=== PATIENT | female | born 1980 | race Caucasian/White ===

== ENCOUNTER → 2017-04-08 | Outpatient (CLI) | payer OTHER ==
[~2017-04-08] MED LIST: /HYDR10T PO; /PREG100CA PO; /PREG50CA PO; ALEV220C2 PO; ALLE60TA69 PO; AMBI5TAB PO; AMBIEN PO; BACL10TA2 PO; BCP; BELS1TAB PO; CIPR500T19 OR; CYCL10TA3 PO; DULO30CA PO; EXCETAB49 PO; GABA-279 PO; GABA-282 PO; IMIT50TA PO; IRON65TA PO; LEVO500T PO; LIDO5OI EXT; MAXA5TAB10 PO; MOTR200T44 PO; NAPR500T PO; NEUR100C PO; NEUR600T PO; NORA0.35 PO; NORC10TA21 PO; NORCOBULK PO; OCEL3TAB PO; OXYC-517 PO; OXYC1TAB16 PO; PERC5TAB8 PO; PROZ20CA11 PO; SAFYTAB PO; TIZA4CAP3 PO; TOPA200T7 PO; TOPA25TA PO; TRAM37.5 PO; TRAM50TA2 PO; VERA40TA PO; WELL150T PO; XARE15TA PO; YASM3TAB2 PO; [UNRECOGNIZED DRUG - CODE] PO; [UNRECOGNIZED DRUG - REMARK]
--- NOTE | 2017-04-08 17:27 | REP ---
Clinical: Contusion . Technique: AP, lateral, bilateral oblique views right ankle . Findings: No acute fracture or dislocation. Skeletal structures and joint spaces are intact and normal. Ankle mortise appears stable. No subcutaneous emphysema or radiodense foreign body. Impression: Normal right ankle radiograph series. Signed by Aron Mcguire MD 04/08/2017 05:18 P
--- NOTE | 2017-04-08 17:29 | REP ---
Clinical: Trauma. Contusion. Technique: AP, lateral, bilateral oblique views right foot . Findings: The osseous structures and joint spaces are intact and normal. There is no evidence for acute fracture or dislocation. Surrounding soft tissues are unremarkable. No subcutaneous emphysema or radiodense foreign body. Impression: No acute fracture or dislocation. Signed by Aron Mcguire MD 04/08/2017 05:20 P
== END ==
LOC: M WUC 17:01
PROVIDERS: ATTEND Physician Assistant
DX: S90.31XA Contusion of right foot, initial encounter (principal); S90.01XA Contusion of right ankle, initial encounter; X58.XXXA Exposure to other specified factors, initial encounter; Y92.9 Unspecified place or not applicable; Y93.9 Activity, unspecified; Y99.9 Unspecified external cause status

== ENCOUNTER → 2017-04-18 | Outpatient (REF) | payer OTHER ==
[2017-04-18 18:22] LABS: WHITE BLOOD COUNT 7.1 K/mm3 (4.0-10.0)
[2017-04-18 18:23] LABS: MEAN CORPUSCULAR HEMOGLOBIN 31.5 pg (27.0-33.0); MEAN CORPUSCULAR HGB CONC 31.9 g/dl (32.0-36.5); MEAN CORPUSCULAR VOLUME 98.7 fl (80.0-96.0); RED CELL DISTRIBUTION WIDTH 13.2 % (11.5-14.5)
[2017-04-18 18:51] LABS: ALBUMIN 3.6 GM/DL (3.2-5.2); ALBUMIN/GLOBULIN RATIO 1.24 (1.00-1.93); ALKALINE PHOSPHATASE 117 U/L (45-117); ALT/SGPT 34 U/L (12-78); ANION GAP 6 MEQ/L (8-16); AST/SGOT 15 U/L (15-37); BILIRUBIN,TOTAL 0.2 MG/DL (0.2-1.0); BLOOD UREA NITROGEN 18 MG/DL (7-18); CALCIUM LEVEL 9.2 MG/DL (8.5-10.1); CARBON DIOXIDE LEVEL 25 MEQ/L (21-32); CHLORIDE LEVEL 113 MEQ/L (98-107); CREATININE FOR GFR 0.74 MG/DL (0.55-1.02); GLOMERULAR FILTRATION RATE > 60.0 (>60); GLUCOSE, FASTING 107 MG/DL (70-105); POTASSIUM SERUM 4.1 MEQ/L (3.5-5.1); SODIUM LEVEL 144 MEQ/L (136-145); TOTAL PROTEIN 6.5 GM/DL (6.4-8.2)
[2017-04-18 18:58] LABS: EOSINOPHILS 1 % (0-5)
== END ==
LOC: M SFHCPLAZ 15:18
PROVIDERS: ATTEND Family Medicine
DX: R63.4 Abnormal weight loss (principal)

== ENCOUNTER → 2017-06-04 | Outpatient (CLI) | payer OTHER ==
--- NOTE | 2017-06-14 23:47 | ECWPNPC ---
PATIENT NAME: HECTOR MURPHY : 1980 GENDER: FEMALE VISIT DATE: 06/04/2017 DISCHARGE DATE: 06/04/17 1530 VISIT LOCKED DATE TIME: PHYSICIAN: FAWN HENSLEY RESOURCE: FAWN HENSLEY REASON FOR APPOINTMENT 1. BACK HISTORY OF PRESENT ILLNESS HISTORY OF PRESENT ILLNESS: PAIN THE PATIENT DESCRIBES THE PAIN... FALL RISK SCREENING: SCREENING :NO FALLS IN THE PAST YEAR TODAY'S VISIT: NOTES: LAST VISIT 05/11/17. DESCRIBES PAIN INTERMITTANT AND CENTERED OVER LOW BACK LEFT SIDE. HURTS TO STRETCH. NO INJURIES. IS WORKING FULLTIME AND LIFTS A GREAT DEAL AND IS ON FEET . RATES PAIN TODAY 4/10. DESCRIBES PAIN INTERMITTANT AND SHARP AND LOCATED AT RIGHT SIDE LOW BACK. DENIES ANY RADIATION OF PAIN TO THE SACRUM . CURRENT MEDICATIONS TAKING CYMBALTA 60 MG CAPSULE DELAYED RELEASE PARTICLES 1 CAPSULE ORALLY ONCE A DAY TAKING TOPAMAX 200 MG TABLET 1 TABLET ORALLY AT BEDTIME TAKING GABAPENTIN 300 MG CAPSULE 1 CAPSULE ORALLY ONE TAB IN AM, ONE TAB IN THE AFTERNOO, TWO TABS AT BED TIME, NOTES: 04/04/16 AT 0800 TAKING DIPHENOXYLATE-ATROPINE 0.025-2.5 MG TABLET 1-2 TABLETS ORALLY FOUR TIMES A DAY NEEDED MDD:6 TAKING ZOLPIDEM TARTRATE 5 MG TABLET 1 TABLET AT BEDTIME ORALLY ONCE A DAY/MDD #1 TAKING TRAMADOL HCL 50 MG TABLET 2 TABS ORALLY EVERY 6 HRS PRN PAIN MDD=6 TAKING SENOKOT S 8.6-50 MG TABLET 2 TABLETS IN THE EVENING NEEDED ORALLY BEFORE BEDTIME TAKING MIRALAX SUSPENSION 17 GRAMS ORALLY AT HOUR OF SLEEP TAKING CHANTIX STARTING MONTH ESTRELLITA 0.5 MG X 11 & 1 MG X 42 TABLET DIRECTED; PATIENT TO REQUEST REFILL IF NECESSARY AFTER COMPLETING STARTING PACK ORALLY DIRECTED TAKING FLUOXETINE HCL 40 MG CAPSULE TAKE ONE CAPSULE BY MOUTH DAILY ORALLY ONCE DAILY TAKING PROMETHAZINE HCL 12.5 MG TABLET 1 TABLET NEEDED FOR NAUSEA ORALLY EVERY 6 HRS NOT-TAKING BISACODYL 10 MG SUPPOSITORY 1 SUPPOSITORY NEEDED RECTAL ONCE A DAY NOT-TAKING DOXYCYCLINE HYCLATE 100 MG CAPSULE 1 CAPSULE ORALLY EVERY 12 HRS NOT-TAKING FLUCONAZOLE 150 MG TABLET 1 TABLET ORALLY ONCE NOT-TAKING MUCINEX 600 MG TABLET EXTENDED RELEASE 12 HOUR 1 TABLET NEEDED ORALLY EVERY 12 HRS NOT-TAKING TESSALON PERLES 100 MG CAPSULE 1 CAPSULE NEEDED ORALLY THREE TIMES A DAY NOT-TAKING LEVAQUIN 750 MG TABLET 1 TABLET ORALLY ONCE A DAY MEDICATION LIST REVIEWED AND RECONCILED WITH THE PATIENT PAST MEDICAL HISTORY ALLERGIES ENDOMETRIOSIS MIGRAINE HEADACHE STOMACH ULCER/2009 KIDNEY STONES-2011 DEPRESSION PNEUMONIA 06/18 KNEE RIGHT ARTHRITIS AND PATELLA PROBLEM FX RIGHT ELBOW RIGHT LEG/ANKLE -WORK INJURY 2011 3 AND 4TH LUMBAR DISC RUPTURED-2012 DVT LEFT ARM ALLERGIES PENICILLIN (FOR ALLERGIES USE ONLY): ANAPHYLAXIS: ALLERGY KEFLEX: ANAPHYLAXIS: ALLERGY LATEX: CONTACT DERMIT.: ALLERGY PREDNISONE: RASH: ALLERGY SHELLFISH: SWELLING: ALLERGY CODEINE PHOSPHATE (FOR ALLERGIES USE ONLY): VOMITING- BLEEDING: ALLERGY SURGICAL HISTORY LAPAROSCOPIC,VAPORIZATION OF AUBREY,ENDOMETRIOSIS, REMOVAL OF IUD 2003 CYST REMOVAL/RIGHT OVARY WITH UTERINE LIFT FOR PELVIC CONGESTION SYNDROME 2004 ENDOMETRIAL POLYPECTOMY 2006 ANKLE SURGERY/RIGHT 05/16,03/19 RIGHT INGUINAL HERNIA REPAIR 2003 RIGHT ELBOW SURGERY 06/2014 PENDING LEFT ELBOW AND CARPAL TUNNEL SURGERY 09/2014 COLONSCOPY/ENDOSCOPY- DR. ANDRES 07/02/16 CHOLECYSTECTOMY 08/07/2016 HOSPITALIZATION/MAJOR DIAGNOSTIC PROCEDURE KIDNEY PROBLEMS 2011 REVIEW OF SYSTEMS REVIEWED BY: PROVIDER: FAWN GRIER . CONSTITUTIONAL: ANY CHANGE IN YOUR MEDICAL CONDITION? NO . CHILLS NO . FEVER NO . INFECTION: DO YOU HAVE NEW INFECTIONS? NO . DO YOU HAVE HISTORY OF MRSA? NO . MUSCULOSKELETAL: ANY NEW PATTERNS OF PAIN OR NUMBNESS? NO . GASTROENTEROLOGY: ANY NEW CHANGE IN BOWEL CONTROL? YES, CONSTIPATION . GENITOURINARY: ANY NEW CHANGE IN BLADDER CONTROL? NO . IS THERE A CHANCE YOU COULD BE ? NO . HEMATOLOGY/LYMPH: DO YOU TAKE ANY BLOOD THINNERS? (FOR EXAMPLE- COUMADIN, PLAVIX, AGGRENOX, PLATEL, PRADAXA, OR XARELTO) NO . WHEN WAS YOUR LAST DOSE? DATE: TIME: . NEUROLOGY: HAVE YOU FALLEN IN THE PAST 6 MONTHS? NO . ANY NEW EXTREMITY NUMBNESS OR WEAKNESS? NO . CARDIOLOGY: DO YOU HAVE A PACEMAKER OR DEFIBRILLATOR? NO . RESPIRATORY: HAVE YOU BEEN SICK IN THE PAST WEEK? NO . FEVER NO . FLU LIKE SYMPTOMS? NO . GENERAL HAS BEEN SICK FOR 4 MONTHS WITH HARSH COUGH WITH GREEN PRODUCTION. HAS BEEN ON MULTIPLE ABX BUT STILL WITH DIFFICULT. TO RESEE DR SERVIN IN THREE WEEKS. . COUGH NO . INTEGUMENTARY: DO YOU HAVE ANY RASHES OR OPEN SORES? NO . ALLERGIC/IMMUNO: ARE YOU ALLERGIC TO SHELLFISH OR IV DYE? YES . ANY NEW ALLERGIES? NO . PSYCHIATRIC: DO YOU HAVE THOUGHTS OF HURTING YOURSELF OR SOMEONE ELSE? NO . ARE YOU ABUSED, NEGLECTED, OR IN AN UNSAFE ENVIRONMENT? NO . ENDOCRINOLOGY: ARE YOU DIABETIC? NO . OTHER: DO YOU NEED ANY PRESCRIPTIONS? NO . IF YES, PLEASE LIST: ____ . ANY NEW PROBLEMS WITH YOUR MEDICATIONS? NO . WHEN DID YOU LAST EAT? ____ . WHEN DID YOU LAST DRINK? ____ . WHAT DID YOU LAST DRINK? ____ . NAME OF PERSON DRIVING YOU HOME? ____ . DO YOU HAVE ANY OTHER QUESTIONS OR CONCERNS NO . VITAL SIGNS WT 101 LBS, HT 62 IN, BMI 18.47 INDEX, BP 125/87 MM HG, HR 69 /MIN, RR 16 /MIN, TEMP 97.9 F, OXYGEN SAT % 99, REVIEWED BY: EM. EXAMINATION GENERAL EXAMINATION: PSYCHALERT , ORIENTED X 3 , APPROPRIATE MOOD AND AFFECT , TALKATIVE. LUNGS: CLEAR TO AUSCULTATION BILATERALLY. HEART:HEART RATE REGULAR. MUSCULOSKELETAL:RIGHT GREATER THAN LEFT SACRAL DISCOMFORT., TRIGGER POINTS:, ELICITED WITH PALPATION OVER LUMBAR PARAVERTEBRAL MUSCLES AND INTO THE SACRUM. RESTRICTION OF ROM IN THIS AREA. RISES TO UPRIGHT POSITION WITHOUT DIFFICULTY. GAIT NONANTALGIC. 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 STRETCH ABLE.BOTOX FOR THE FUTURE. PROCEDURE CODES FA211 ESTABILISHED PATIENT [facility] CHARGE DISPOSITION & COMMUNICATION FOLLOW UP 7 WEEKS (REASON: BACK PAIN) ELECTRONICALLY SIGNED BY ELOISE ENGLISH ON 06/14/2017 AT 04:57 PM EDT DISCLAIMER : THIS IS A VISIT SUMMARY EXTRACTED FROM THE [employer] CHART. IT IS NOT A COPY OF THE [employer] PROGRESS NOTE. ANALILIA
== END ==
LOC: M PAIN 14:15
PROVIDERS: ATTEND Nurse Practitioner Family
DX: M46.96 Unspecified inflammatory spondylopathy, lumbar region (principal); G90.529 Complex regional pain syndrome I of unspecified lower limb; M79.1 Myalgia; F41.9 Anxiety disorder, unspecified; F32.9 Major depressive disorder, single episode, unspecified; K59.00 Constipation, unspecified; E46 Unspecified protein-calorie malnutrition; Z79.891 Long term (current) use of opiate analgesic; Z79.899 Other long term (current) drug therapy; Z88.0 Allergy status to penicillin; Z88.5 Allergy status to narcotic agent; Z88.1 Allergy status to other antibiotic agents; Z91.013 Allergy to seafood; Z91.040 Latex allergy status

== ENCOUNTER → 2017-08-19 | Outpatient (CLI) | payer OTHER | LOC: M PAIN 15:00 | PROVIDERS: ATTEND Nurse Practitioner Family | DX: Z53.29 Procedure and treatment not carried out because of patient's decision for other reasons (principal) ==

== ENCOUNTER → 2017-09-19 | Outpatient (CLI) | payer OTHER | LOC: M PAIN 13:30 | DX: M46.96 Unspecified inflammatory spondylopathy, lumbar region (principal); Z79.891 Long term (current) use of opiate analgesic; Z79.899 Other long term (current) drug therapy; F17.210 Nicotine dependence, cigarettes, uncomplicated; R51 Headache; Z88.0 Allergy status to penicillin; Z88.1 Allergy status to other antibiotic agents; Z88.5 Allergy status to narcotic agent; Z88.8 Allergy status to other drugs, medicaments and biological substances; Z91.040 Latex allergy status; Z91.013 Allergy to seafood | CPT/HCPCS: G0463 ==

== ENCOUNTER 2018-11-06 01:45 | Emergency (ER) | payer OTHER ==
[~2018-11-06] VITALS: Ht 157.5 cm; Wt 44.5 kg
[2018-11-06 01:45] VITALS: BP 112/72
[~2018-11-06 01:45] MED LIST changes: +GABA-1171 PO; -GABA-279 PO; -GABA-282 PO; +GABA-843 PO; +OXYC10TA3 PO; -OXYC1TAB16 PO; +TIZA4CAP PO; -TIZA4CAP3 PO
[2018-11-06] MEDS ORDERED: IBUP-1022 PO (01:55)
[2018-11-06] MEDS ORDERED: traMADol 50 MG TAB PO ONE (03:00)
--- NOTE | 2018-11-06 07:39 | REP ---
Clinical: Pain. Technique: AP, lateral, bilateral oblique views of the right ankle. Findings: Mild lateral swelling suggests inversion injury. Cortical irregularity at the fibular head may reflect old injury. No acute fracture dislocation. Ankle mortise intact. No subcutaneous emphysema or radiodense foreign body. Impression: 1. Mild lateral swelling. 2. Possible old healed lateral malleolus injury. 3. No acute fracture or dislocation. Electronically Signed by Aron Mcguire MD 11/06/2018 07:31 A
== END 2018-11-06 03:03 | disposition home or self-care (01) ==
LOC: M ED 01:45
DX: G89.4 Chronic pain syndrome (principal); G43.909 Migraine, unspecified, not intractable, without status migrainosus; Z88.0 Allergy status to penicillin; Z88.1 Allergy status to other antibiotic agents; Z88.5 Allergy status to narcotic agent; Z88.8 Allergy status to other drugs, medicaments and biological substances; Z91.013 Allergy to seafood; Z91.040 Latex allergy status; Z91.041 Radiographic dye allergy status; F17.210 Nicotine dependence, cigarettes, uncomplicated

== ENCOUNTER 2018-12-02 22:18 | Emergency (ER) | payer MEDICAID, OTHER, SELFPAY ==
[~2018-12-02] VITALS: Ht 157.5 cm; Wt 44.5 kg
[~2018-12-02 22:18] MED LIST changes: -/PREG100CA PO; -/PREG50CA PO; -DULO30CA PO; +DULO30CA9 PO; +IBUP-1022 PO; +LIDO1OIN2 EXT; -LIDO5OI EXT; +LYRI100C PO; +LYRI50CA PO; -NORC10TA21 PO; +NORC1TAB5 PO
[2018-12-03] MEDS ORDERED: LIDOCAINE 4% CREAM 5GM (LMX4) TOP STA
[2018-12-03] MEDS ORDERED: TRAM50TA2 PO (01:09)
[2018-12-03] MEDS ORDERED: LIDO5CRE6 TOP (01:09)
[2018-12-03] MEDS ORDERED: traMADol 50 MG TAB PO ONE ×2 (01:15)
[2018-12-03 01:17] VITALS: BP 126/74
--- NOTE | 2018-12-03 06:47 | REP ---
Clinical: Bilateral wrist pain. Technique: AP, lateral, bilateral oblique views of the right and left wrist. Findings: Osseous structures, joint spaces, and surrounding soft tissues appear normal for age. No acute fracture dislocation. No overt osteoarthritic degenerative changes are appreciated. No subcutaneous emphysema or radiodense foreign body. Impression: Age-appropriate bilateral wrist radiograph series. Electronically Signed by Aron Mcguire MD 12/03/2018 06:38 A
== END 2018-12-03 01:24 | disposition home or self-care (01) ==
LOC: M ED 22:18
DX: M65.4 Radial styloid tenosynovitis [de Quervain] (principal); F17.200 Nicotine dependence, unspecified, uncomplicated; Z91.041 Radiographic dye allergy status; Z88.1 Allergy status to other antibiotic agents; Z88.5 Allergy status to narcotic agent; Z91.040 Latex allergy status; Z91.048 Other nonmedicinal substance allergy status; Z91.013 Allergy to seafood; Z88.0 Allergy status to penicillin

== ENCOUNTER 2020-04-27 11:56 | Emergency (ER) | payer MEDICAID, OTHER, SELFPAY ==
[~2020-04-27] VITALS: Ht 157.5 cm; Wt 43.2 kg
[~2020-04-27 11:56] MED LIST changes: +LIDO5CRE6 TOP
[2020-04-27] MEDS ORDERED: FLUO20CA22 PO (12:13)
[2020-04-27] MEDS ORDERED: PANTOPRAZOLE 40MG VIAL (C9113 PER 1) IV ONE (12:30)
[2020-04-27] MEDS ORDERED: ONDANSETRON 4MG/2ML VIAL IV ONE (12:30)
[2020-04-27] MEDS ORDERED: NS 1,000 ML IV ONE (12:30)
[2020-04-27] MEDS ORDERED: GI COCKTAIL 50ML BTL(HYOSCYAMINE/MAALOX/LIDOCAINE VISCOUS)(1:3:1) PO ONE (12:30)
[2020-04-27 12:48] LABS: BASO % 0.3 % (0.0-1.0); HEMATOCRIT 46.2 % (36.0-47.0); HEMOGLOBIN 15.8 g/dl (12.0-15.5); LYMPH % 7.5 % (24.0-44.0); MEAN CORPUSCULAR HEMOGLOBIN 31.5 pg (27.0-33.0); MEAN CORPUSCULAR HGB CONC 34.2 g/dl (32.0-36.5); MEAN CORPUSCULAR VOLUME 92.2 fl (80.0-96.0); MONO # 0.4 10^3/uL (0.0-0.8); MONO % 3.2 % (0.0-5.0); NEUTROPHILS # 12.2 10^3/uL (1.5-8.5); NEUTROPHILS % 88.3 % (36.0-66.0); PLATELET COUNT, AUTOMATED 363 10^3/uL (150-450); RED BLOOD COUNT 5.01 10^6/uL (4.00-5.40); WHITE BLOOD COUNT 13.8 10^3/uL (4.0-10.0)
[2020-04-27 13:27] LABS: ALBUMIN 4.4 GM/DL (3.2-5.2); ALT/SGPT 19 U/L (12-78); AMYLASE 97 U/L (25-115); BILIRUBIN,DIRECT < 0.1 MG/DL (0.0-0.2); BILIRUBIN,TOTAL 0.8 MG/DL (0.2-1.0); BLOOD UREA NITROGEN 9 MG/DL (7-18); CALCIUM LEVEL 9.9 MG/DL (8.5-10.1); CARBON DIOXIDE LEVEL 22 MEQ/L (21-32); CHLORIDE LEVEL 104 MEQ/L (98-107); CREATININE FOR GFR 0.68 MG/DL (0.55-1.30); GLOMERULAR FILTRATION RATE > 60.0 (>58); GLUCOSE, FASTING 163 MG/DL (70-100); LIPASE 56 U/L (73-393); POTASSIUM SERUM 5.5 MEQ/L (3.5-5.1); SODIUM LEVEL 133 MEQ/L (136-145); TOTAL PROTEIN 7.9 GM/DL (6.4-8.2)
[2020-04-27 15:00] VITALS: BP 139/80
[2020-04-27] MEDS ORDERED: PEPC1TAB5 PO (15:02)
[2020-04-27] MEDS ORDERED: ZOFR4TAB16 PO (15:02)
== END 2020-04-27 15:28 | disposition home or self-care (01) ==
LOC: M ED 11:56 → EDBD 11:56 → M ED 15:28
DX: R11.2 Nausea with vomiting, unspecified (principal); R10.9 Unspecified abdominal pain; Z79.899 Other long term (current) drug therapy; Z88.0 Allergy status to penicillin; Z88.1 Allergy status to other antibiotic agents; Z88.5 Allergy status to narcotic agent; Z88.8 Allergy status to other drugs, medicaments and biological substances; Z91.041 Radiographic dye allergy status; F17.210 Nicotine dependence, cigarettes, uncomplicated
CPT/HCPCS: 80048; 80076; 81001; 82150; 83690; 85025; 96361; 96374; 96375; 99284; C9113; J2405

== ENCOUNTER → 2020-11-08 | Outpatient (REF) | payer OTHER, SELFPAY ==
[~2020-11-08] MED LIST changes: +FLUO20CA22 PO; +GABA-282 PO; -GABA-843 PO; +PEPC1TAB5 PO; +ZOFR4TAB16 PO
[2020-11-08 16:04] LABS: CHLAMYDIA DNA AMPLIFICATION NEGATIVE (NEGATIVE); GC DNA AMPLIFICATION NEGATIVE (NEGATIVE)
== END ==
LOC: M SFHCWAGY 13:35
PROVIDERS: ATTEND Nurse Practitioner Women's Health
DX: Z11.3 Encounter for screening for infections with a predominantly sexual mode of transmission (principal)

== ENCOUNTER → 2020-11-08 | Outpatient (REF) | payer OTHER, SELFPAY | LOC: M SFHCWAGY 13:50 | PROVIDERS: ATTEND Nurse Practitioner Women's Health | DX: Z12.4 Encounter for screening for malignant neoplasm of cervix (principal) | CPT/HCPCS: 87624; G0123 ==

== ENCOUNTER → 2021-01-02 | Outpatient (CLI) | payer MEDICAID | LOC: M LABSMTC 13:39 | PROVIDERS: ATTEND Anesthesiology | DX: Z01.812 Encounter for preprocedural laboratory examination (principal); Z20.822 Contact with and (suspected) exposure to COVID-19 ==

== ENCOUNTER 2021-01-06 09:27 | Day surgery (SDC) | payer MEDICAID, SELFPAY ==
[~2021-01-06] VITALS: Ht 157.5 cm; Wt 54.4 kg
[~2021-01-06 09:27] MED LIST changes: +ACETAMINOPHEN 1000MG 100ML IV BTL (OFIRMEV) (J0131 PER 10MG) As Ordered ONE; +LIDOCAINE 2% 100MG/5ML SDV (FOR ANES.) As Ordered ONE; +LR 1,000 ML IV ONE; +MIDAZOLAM INJ 2MG/2ML VIAL (J2250 PER 1MG) As Ordered ONE; +ONDANSETRON 4MG/2ML VIAL As Ordered ONE; +dexameTHASONE 4 MG/ML 1ML VIAL (J1100 PER 1MG) As Ordered ONE; +fentaNYL 100 MCG/2 ML INJECTION (J3010) As Ordered ONE; +propofoL 200 MG/20 ML VIAL As Ordered ONE
[2021-01-06] MEDS ORDERED: BUPIVACAINE HCL 0.25% 10ML VIAL As Ordered ONE (09:52)
[2021-01-06] MEDS ORDERED: SCOPOLAMINE 1MG TRANSDERMAL PATCH As Ordered ONE (10:10)
[2021-01-06] MEDS ORDERED: SCOPOLAMINE 1MG TRANSDERMAL PATCH TOP ONE (10:15)
[2021-01-06 10:26] LABS: HEMATOCRIT 43.4 % (36.0-47.0); HEMOGLOBIN 14.8 g/dl (12.0-15.5); MEAN CORPUSCULAR HEMOGLOBIN 31.6 pg (27.0-33.0); MEAN CORPUSCULAR HGB CONC 34.1 g/dl (32.0-36.5); MEAN CORPUSCULAR VOLUME 92.7 fl (80.0-96.0); PLATELET COUNT, AUTOMATED 331 10^3/uL (150-450); RED BLOOD COUNT 4.68 10^6/uL (4.00-5.40); WHITE BLOOD COUNT 7.3 10^3/uL (4.0-10.0)
[2021-01-06] MEDS ORDERED: ROCURONIUM BROMIDE 50 MG/5 ML VIAL As Ordered ONE (10:26)
[2021-01-06] MEDS ORDERED: METOCLOPRAMIDE INJ 10MG/2ML VIAL (J2765 PER 1) As Ordered ONE (10:27)
[2021-01-06] MEDS ORDERED: SUGAMMADEX SODIUM 500 MG/5 ML VIAL (BRIDION) As Ordered ONE ×2 (10:30→10:34)
[2021-01-06] MEDS ORDERED: KETOROLAC 60MG 2ML VIAL As Ordered ONE (10:37)
--- NOTE | 2021-01-06 11:38 | ROOPDOC ---
[facility] Report Of Operation Report of Operation DATE OF PROCEDURE: 01/06/21 PREPROCEDURE DIAGNOSES: Undesired fertility POSTPROCEDURE DIAGNOSES: same. PROCEDURE: Laparoscopic bilateral salpingectomy, right ovarian cystectomy, removal of intrauterine device, hysteroscopy, D&C, NovaSure endometrial ablation. SURGEON: Ashley Cerda MD ANESTHESIA: Gen. endotracheal anesthesia. ESTIMATED BLOOD LOSS: Approximately 30 mL. COMPLICATIONS: None. FINDINGS: 4-5 cm hemorrhagic cyst of the right ovary. Normal left ovary. Normal fallopian tubes. Normal uterus. Normal upper abdomen. Normal endometrial cavity. PROCEDURE NOTE: Patient was taken to the operating room where general endotracheal anesthesia induced. She was prepped draped sterile fashion in the dorsal lithotomy position. A sponge stick was placed in the vagina and uses manipulator. The bladder was emptied with a catheter. A periumbilical incision was made with the scalpel. A Veress needle was placed through this incision while tenting up on the skin of the abdomen.. Intra-abdominal location of the Veress needle was assessed with use of a saline filled syringe. A pneumoperitoneum was created. The Veress needle was removed. A 5 mm trocar using the Visiport was inserted through this incision. A 5 and 8 mm suprapubic port was placed under direct visualization without difficulty. A 5 mm scope with camera used to visualize the abdomen and pelvis. The patient was placed in Trendelenburg position. A grasping instrument was used to elevate each fallopian tube. The fallopian tubes were detached from their broad ligament attachments by using LigaSure. Both fallopian tubes were excised near their origins. Both fallopian tubes were removed through the suprapubic ports. Right ovarian cysts as noted above. Due to potential for rupture of the ovarian cysts with subsequent hemorrhage, the decision was made to remove cyst. Right ovary was elevated with a grasping instrument. Cyst resected sharply off the ovary using LigaSure. The base of the cyst was coagulated. Good hemostasis was noted. The cyst capsule was removed through the suprapubic ports. All instruments were removed. The pneumoperitoneum was released. The skin was closed with 4-0 Monocryl subcuticular sutures. Sponge, instrument and needle counts were correct. Attention was turned to the vagina. A speculum was placed in the vagina. The anterior lip of the cervix grasped with tenaculum. Adilene clamp was used to grasp the IUD string. The IUD was removed intact without difficulty. The cervix dilated with tapered dilators. Diagnostic hysteroscope using normal saline as a distention media was placed through the internal os. Visualization of the endometrial cavity revealed the findings noted above. Hysteroscope was removed. Sharp curettage performed. Initial cavity length was calculated at 4.0 cm. Total cavity width was 4.3 cm. Total power setting 95 W. A successful cavity assessment was performed. Initial device had a vacuum failure. Device had been activated. However, the device did not initiate. Initial Novasure device removed and replaced. The new device was inserted and all steps were repeated. Successful cavity assessment was again performed. Coagulation was initiated. Total coagulation time was 1 minute 31 seconds. The NovaSure device was removed. Hysteroscopy was again performed. There was no evidence of injury to the uterus. An excellent coagulation effect was noted throughout the endometrium with sparing of the cervix. All instruments removed. Sponge, instrument and needle counts correct. Patient went to the recovery room in stable condition. ASHLEY CERDA MD Jan 06, 2021 11:38
[2021-01-06] MEDS ORDERED: OXYC1TAB23 PO (11:39)
[2021-01-06] MEDS ORDERED: fentaNYL 100 MCG/2 ML INJECTION (J3010) As Ordered ONE (11:45)
[2021-01-06] MEDS: fentaNYL 100 MCG/2 ML INJECTION (J3010) IV PRN ×3 (11:46→11:57)
[2021-01-06 12:05] VITALS: BP 138/68
[2021-01-06] MEDS ORDERED: oxyCODONE 5MG TAB PO PRN (12:15)
[2021-01-06] MEDS ORDERED: PERCOCET 5MG/325MG TAB PO PRN (12:15)
[2021-01-06] MEDS ORDERED: LR 1,000 ML IV SCH ×2 (12:15)
[2021-01-06] MEDS ORDERED: ONDANSETRON 4MG/2ML VIAL IV PRN (12:15)
== END 2021-01-06 12:49 | disposition home or self-care (01) ==
LOC: M SDC 09:27
PROVIDERS: ATTEND Specialist
DX: Z30.2 Encounter for sterilization (principal); N92.6 Irregular menstruation, unspecified; N83.01 Follicular cyst of right ovary; G43.909 Migraine, unspecified, not intractable, without status migrainosus; Z79.899 Other long term (current) drug therapy; F32.9 Major depressive disorder, single episode, unspecified; F17.218 Nicotine dependence, cigarettes, with other nicotine-induced disorders; F12.10 Cannabis abuse, uncomplicated; Z91.041 Radiographic dye allergy status; Z88.0 Allergy status to penicillin; Z88.8 Allergy status to other drugs, medicaments and biological substances; Z91.013 Allergy to seafood; Z91.018 Allergy to other foods; D64.9 Anemia, unspecified
CPT/HCPCS: 36415; 58301; 58563; 58661; 58662; 81025; 85027; 88302; 88305; J0131; J1100; J1885; J2250; J2405; J2765; J3010